=== PATIENT | male | born 1995 | race Caucasian/White ===

== ENCOUNTER 2019-12-18 15:27 | Observation (INO) ==
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
[2019-12-18 16:25] LABS: Basophils # (auto) 0.03 K/uL (0-0.2); Basophils % (auto) 0.2 %; Eosinophils # (auto) 0.09 K/uL (0-0.5); Eosinophils % (auto) 0.7 %; Hematocrit (blood only) 49.1 % (42-52); Hemoglobin 17.7 g/dL (14.0-18.0); Immature Granulocytes # (auto) 0.05 K/uL (0.00-0.02); Immature Granulocytes % (auto) 0.4 %; Lymphocytes # (auto) 1.37 K/uL (1.2-3.4); Lymphocytes % (auto) 11.3 %; Mean Corpuscular Hemoglobin 31.6 pg (25-34); Mean Corpuscular Volume 87.5 fL (80-100); Mean Platelet Volume 10.7 fL (7.4-10.4); Monocytes % (auto) 8.3 %; Neutrophils # (auto) 9.54 K/uL (1.4-6.5); Neutrophils % (auto) 79.1 %; Platelet Count 268 K/uL (130-400); RDW Coefficient of Variation 12.5 % (11.5-14.5); RDW Standard Deviation 39.9 fL (36.4-46.3); Red Blood Count 5.61 M/uL (4.7-6.1); White Blood Count 12.08 K/uL (4.8-10.8)
[2019-12-18 16:36] LABS: Partial Thromboplastin Ratio 0.9; Partial Thromboplastin Time 25.8 Seconds (21.0-31.0); Prothrombin Time 10.9 Seconds (9.0-12.0)
[2019-12-18 16:43] LABS: Alanine Aminotransferase 30 U/L (12-78); Albumin Level 4.7 gm/dl (3.4-5.0); Aspartate Aminotransferase 21 U/L (15-37); BUN Creatinine Ratio 15.4 (10-20); Blood Urea Nitrogen 18 mg/dl (7-18); Calcium 9.6 mg/dl (8.5-10.1); Carbon Dioxide 25 mmol/L (21-32); Chloride 108 mmol/L (98-107); Est GFR (African American) 104.1; Est GFR (Non-African American) 89.8; Glucose 84 mg/dl (70-99); Potassium 3.7 mmol/L (3.5-5.1); Sodium 141 mmol/L (136-145)
--- NOTE | 2019-12-18 16:44 | XRay Report ---
XR ribs LT min 3V w CXR1V CLINICAL HISTORY: Left rib pain. COMPARISON STUDY: None. FINDINGS: The lungs are clear. The heart is normal in size. No pleural effusions. No pneumothorax. No rib fractures. IMPRESSION: No rib fractures. No pneumothorax. ACT 112: Negative or not required by law. Electronically signed by: Maurice Patten M.D. 12/18/2019 4:42 PM
[2019-12-18 16:48] LABS: Albumin Globulin Ratio 1.5 (0.9-2); Alkaline Phosphatase 115 U/L (45-117); Bilirubin,Total 1.8 mg/dl (0.2-1); Creatine Kinase 362 U/L (39-308); Globulin 3.2 gm/dl (2.5-4.0); Total Protein 7.9 gm/dl (6.4-8.2); Troponin I < 0.015 ng/ml (0-0.045)
[2019-12-18] MEDS ORDERED: SODIUM CHLORIDE 0.9% 1000ML 1,000 ML IV ONE (17:43)
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
--- NOTE | 2019-12-19 01:34 | Electrocardiogram Report ---
Test Reason : Blood Pressure : / mmHG Vent. Rate : 093 BPM Atrial Rate : 093 BPM P-R Int : 170 ms QRS Dur : 100 ms QT Int : 312 ms P-R-T Axes : 064 058 031 degrees QTc Int : 387 ms Sinus rhythm with marked sinus arrhythmia Possible Left atrial enlargement Left ventricular hypertrophy Nonspecific T wave abnormality Abnormal ECG No previous ECGs available Confirmed by Chris Thomas ([id number]) on 12/19/2019 1:33:46 AM Referred By: Confirmed By:Chris Thomas
[2019-12-19 06:39] LABS: BUN Creatinine Ratio 14.2 (10-20); Creatinine Clr Calc Pharmacy 130.9 ml/min; Est GFR (African American) 123.3; Est GFR (Non-African American) 106.4; Potassium 3.6 mmol/L (3.5-5.1)
[2019-12-19 06:48] LABS: Albumin Globulin Ratio 1.5 (0.9-2); Globulin 2.7 gm/dl (2.5-4.0); Total Protein 6.7 gm/dl (6.4-8.2)
[2019-12-19] MEDS ORDERED: LORATADINE 10 MG TAB PO SCH (09:00)
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
--- NOTE | 2019-12-20 06:45 | Electrocardiogram Report ---
Test Reason : Blood Pressure : / mmHG Vent. Rate : 084 BPM Atrial Rate : 084 BPM P-R Int : 148 ms QRS Dur : 100 ms QT Int : 348 ms P-R-T Axes : 044 028 015 degrees QTc Int : 411 ms Normal sinus rhythm Minimal voltage criteria for LVH, may be normal variant Borderline ECG When compared with ECG of 18-DEC-2019 15:29, Nonspecific T wave abnormality no longer evident in Anterolateral leads Confirmed by Chris Thomas ([id number]) on 12/20/2019 6:45:04 AM Referred By: REFERRED SELF Confirmed By:Chris Thomas
== END 2019-12-19 10:49 | disposition home or self-care (01) ==
LOC: ED 15:27 → 2N 15:27 → SUATTDRO 19:01 → 2N 19:24